=== PATIENT | female | born 1955 | race African-American/Black ===

== ENCOUNTER 2017-08-03 08:29 | Emergency (ER) | payer OTHER, SELFPAY ==
--- NOTE | 2017-08-03 09:35 | ER ---
Nurse's Notes [facility] Name: Violetta Coombs Age: 61 yrs Sex: Female : 1955 Arrival Date: 08/03/2017 Time: 08:33 Bed 17 Private MD: out of town, doctor Diagnosis: Carpal tunnel syndrome, left upper limb;Carpal tunnel syndrome, right upper limb Presentation: 08/03 08:46 Presenting complaint: Patient states: "my arms are swollen and they are painful, it aa5 hurts to even open up a bottle". Pt states "the left arm is worse than the left". Pt reports symptoms began 1 week ago. Transition of care: patient was not received from another setting of care. Onset of symptoms was June 2017. Risk Assessment: Do you want to hurt yourself or someone else? Patient reports no desire to harm self or others. Initial Sepsis Screen: Does the patient meet any 2 criteria? No. Patient's initial sepsis screen is negative. Does the patient have a suspected source of infection? No. Patient's initial sepsis screen is negative. Care prior to arrival: None. 08:46 Method Of Arrival: Ambulatory aa5 08:46 Acuity: PRICILA 3 aa5 Historical: - Allergies: 08:45 Codeine; aa5 - PMHx: 08:45 Anemia; High Cholesterol; Hypertension; aa5 - Immunization history:: Adult Immunizations up to date. - Social history:: Smoking status: Patient/guardian denies using tobacco. - Ebola Screening: : No symptoms or risks identified at this time. - Family history:: not pertinent. - Hospitalizations: : No recent hospitalization is reported. Screenin:45 Abuse screen: Denies threats or abuse. Denies injuries from another. Nutritional jl7 screening: No deficits noted. Tuberculosis screening: No symptoms or risk factors identified. Fall Risk None identified. Assessment: 08:45 General: Appears in no apparent distress. uncomfortable, Behavior is calm, cooperative, jl7 appropriate for age. Pain: Complains of pain in right hand and left hand Pain radiates to right wrist and left wrist Pain currently is 7 out of 10 on a pain scale. Quality of pain is described as "Stiff and it hurts." Pain began 1 week Is continuous. Neuro: Level of Consciousness is awake, alert, obeys commands, Oriented to person, place, time, situation. Cardiovascular: Patient's skin is warm and dry. Respiratory: Airway is patent Respiratory effort is even, unlabored, Respiratory pattern is regular, symmetrical. GI: No signs and/or symptoms were reported involving the gastrointestinal system. : No signs and/or symptoms were reported regarding the genitourinary system. EENT: No signs and/or symptoms were reported regarding the EENT system. Derm: Skin is dry, Skin is normal, Skin temperature is warm. Musculoskeletal: Range of motion: limited in bilateral wrist, bilateral fingers. 10:00 Reassessment: Pt reports "They feel so much better being in the splints.". jl7 Vital Signs: 08:47 BP 143 / 74; Pulse 62; Resp 18 S; Temp 97.7(O); Pulse Ox 97% on R/A; Weight 79.38 kg aa5 (R); Height 5 ft. 8 in. (172.72 cm) (R); Pain 7/10; 10:00 BP 120 / 70; Pulse 65; Resp 16; Pulse Ox 98% ; jl7 08:47 Body Mass Index 26.61 (79.38 kg, 172.72 cm) aa5 ED Course: 08:33 Patient arrived in ED. mr 08:33 out of town, doctor is Private Physician. mr 08:45 Arm band placed on. aa5 08:45 Patient has correct armband on for positive identification. Bed in low position. Call jl7 light in reach. Side rails up X 1. Pulse ox on. NIBP on. 08:45 No provider procedures requiring assistance completed. jl7 08:47 Triage completed. aa5 08:49 Quintin Patel MD is Attending Physician. rn 08:52 Harjit Patino RN is Primary Nurse. jl7 09:12 Velcro wrist splint applied to bilateral wrist. jl7 10:04 Patient did not have IV access during this emergency room visit. jl7 Administered Medications: No medications were administered Outcome: 09:34 Discharge ordered by . rn 10:04 Discharged to home ambulatory. jl7 10:04 Condition: stable 10:04 Discharge instructions given to patient, Instructed on discharge instructions, follow up and referral plans. medication usage, Demonstrated understanding of instructions, follow-up care, medications, Prescriptions given X 1. 10:06 Patient left the ED. jl7 Signatures: Mai Mayers Roman, MD MD rn Daniel, Cristina, RN RN aa5 Harjit Patino RN RN jl7
--- NOTE | 2017-08-03 09:35 | EDPHYS ---
Physician Documentation [facility] Name: Violetta Coombs Age: 61 yrs Sex: Female : 1955 Arrival Date: 08/03/2017 Time: 08:33 Bed 17 Private MD: out of town, doctor ED Physician Quintin Patel HPI: 08/03 09:31 This 61 yrs old Black Female presents to ER via Ambulatory with complaints of Arm Pain, rn Hand Pain. 09:31 The patient or guardian complains of pain. The complaints affect the right wrist and rn right hand, left wrist and left hand. 09:32 Onset: The symptoms/episode began/occurred 1 week(s) ago. Severity of symptoms: At rn their worst the symptoms were mild, in the emergency department the symptoms are unchanged. The patient has experienced a previous episode. Reports bilateral wrist and hand pain, worse when she wakes up, no trauma, reports weakness and pain/aching, gets better throughout day. . Historical: - Allergies: 08:45 Codeine; aa5 - PMHx: 08:45 Anemia; High Cholesterol; Hypertension; aa5 - Immunization history:: Adult Immunizations up to date. - Social history:: Smoking status: Patient/guardian denies using tobacco. - Ebola Screening: : No symptoms or risks identified at this time. - Family history:: not pertinent. - Hospitalizations: : No recent hospitalization is reported. ROS: 09:32 Constitutional: Negative for fever, chills, and weight loss, Eyes: Negative for injury, rn pain, redness, and discharge, Neck: Negative for injury, pain, and swelling, Cardiovascular: Negative for chest pain, palpitations, and edema, Respiratory: Negative for shortness of breath, cough, wheezing, and pleuritic chest pain, Abdomen/GI: Negative for abdominal pain, nausea, vomiting, diarrhea, and constipation, Back: Negative for injury and pain, MS/Extremity: Negative for injury and deformity, Skin: Negative for injury, rash, and discoloration, Neuro: Negative for headache, seizure. Exam: 09:32 Constitutional: This is a well developed, well nourished patient who is awake, alert, rn and in no acute distress. Neck: Trachea midline, no thyromegaly or masses palpated, and no cervical lymphadenopathy. Supple, full range of motion without nuchal rigidity, or vertebral point tenderness. No Meningismus. Skin: Warm, dry with normal turgor. Normal color with no rashes, no lesions, and no evidence of cellulitis. MS/ Extremity: Pulses equal, no cyanosis. Neurovascular intact. Full, normal range of motion. Equal circumference. Neuro: Awake and alert, GCS 15, oriented to person, place, time, and situation. Cranial nerves II-XII grossly intact. Motor strength 5/5 in all extremities. Sensory grossly intact. Cerebellar exam normal. Normal gait. Vital Signs: 08:47 BP 143 / 74; Pulse 62; Resp 18 S; Temp 97.7(O); Pulse Ox 97% on R/A; Weight 79.38 kg aa5 (R); Height 5 ft. 8 in. (172.72 cm) (R); Pain 7/10; 10:00 BP 120 / 70; Pulse 65; Resp 16; Pulse Ox 98% ; jl7 08:47 Body Mass Index 26.61 (79.38 kg, 172.72 cm) aa5 MDM: 08:49 Patient medically screened. rn 09:32 Differential diagnosis: tendonitis, radiculopathy, carpal tunnel syndrome, peripheral rn polyneuropathy. Data reviewed: vital signs, nurses notes, and as a result, I will discharge patient. Counseling: I had a detailed discussion with the patient and/or guardian regarding: the historical points, exam findings, and any diagnostic results supporting the discharge/admit diagnosis, the need for outpatient follow up, to return to the emergency department if symptoms worsen or persist or if there are any questions or concerns that arise at home. Special discussion: I discussed with the patient/guardian in detail that at this point there is no indication for admission to the hospital. It is understood, however, that if the symptoms persist or worsen the patient needs to return immediately for re-evaluation. Based on the history and exam findings, there is no indication for further emergent testing or inpatient evaluation. I discussed with the patient/guardian the need to see the neurologist for further evaluation of the symptoms. I discussed with the patient/guardian the need to see the primary care provider for further evaluation of the symptoms. 08/03 08:56 Order name: Splint: bilateral cock-up wrist splints; Complete Time: 09:11 rn Administered Medications: No medications were administered Disposition: 08/03/17 09:34 Discharged to Home. Impression: Carpal tunnel syndrome, left upper limb, Carpal tunnel syndrome, right upper limb. - Condition is Stable. - Discharge Instructions: Carpal Tunnel Syndrome, Wrist Splint. - Prescriptions for Medrol (Gus) 4 mg Oral Tablets, Dose Pack - take 1 tablet by ORAL route as directed - follow package instructions; 1 packet. - Medication Reconciliation Form, Thank You Letter, Antibiotic Education, Prescription Opioid Use form. - Follow up: Private Physician; When: As needed; Reason: Recheck today's complaints, Re-evaluation by your physician. - Problem is an ongoing problem. - Symptoms are unchanged. Signatures: Quintin Patel MD MD rn Cristina Sanchez RN RN aa5 Harjit Patino RN RN jl7 Corrections: (The following items were deleted from the chart) 10:06 09:34 08/03/2017 09:34 Discharged to Home. Impression: Carpal tunnel syndrome, left jl7 upper limb; Carpal tunnel syndrome, right upper limb. Condition is Stable. Forms are Medication Reconciliation Form, Thank You Letter, Antibiotic Education, Prescription Opioid Use. Follow up: Private Physician; When: As needed; Reason: Recheck today's complaints, Re-evaluation by your physician. Problem is an ongoing problem. Symptoms are unchanged. rn
[2017-08-03 10:18] VITALS: TEMP 97.7
[2017-08-03 10:19] VITALS: BP 120/70; O2SAT 98
== END 2017-08-03 10:06 | disposition home or self-care (01) ==
LOC: ER 08:29
DX: G56.03 Carpal tunnel syndrome, bilateral upper limbs (principal); I10 Essential (primary) hypertension; Z88.5 Allergy status to narcotic agent
CPT/HCPCS: 99283